=== PATIENT | female | born 1955 | race Caucasian/White ===

== ENCOUNTER → 2017-03-14 | Outpatient (CLI) | payer OTHER | LOC: CIMAGING 10:07 | PROVIDERS: ATTEND Physician Assistant | DX: K59.00 Constipation, unspecified (principal) | CPT/HCPCS: 74020-PO ==

== ENCOUNTER 2017-04-06 10:23 | Day surgery (SDC) | payer OTHER ==
[2017-04-06] MEDS ORDERED: LR 1,000 ML IV ONE (10:57)
--- NOTE | 2017-04-06 11:52 | PDGENHP ---
History & Physical Chief Complaint: phx polyps History of Present Illness: phx polyps, constipation Pertinent Past, Social, Family History: shx - tobacco 4 per day, had quit for 7 years then restarted, alcohol rare. FHX - no cc, breast cancer Relevant Physical Exam: A+Ox3, CTA, S1S2, RRR +BS, soft mild LLQ tenderness Cardiorespiratory Assessment: class 2 pt
--- NOTE | 2017-04-06 11:57 | PDANEPAE ---
ANE History of Present Illness Stool abnormality ANE Past Medical History - Cardiovascular History Hx Hypertension: No Hx Arrhythmias: No Hx Chest Pain: No Hx Coronary Artery / Peripheral Vascular Disease: No Hx CHF / Valvular Disease: No Hx Palpitations: No - Pulmonary History Hx COPD: No Hx Asthma/Reactive Airway Disease: No Hx Recent Upper Respiratory Infection: No Hx Oxygen in Use at Home: No Hx Sleep Apnea: No Sleep Apnea Screening Result - Last Documented: Negative Pulmonary History Comment: Smokes 5 cigs/day due to stress - Neurologic History Hx Cerebrovascular Accident: No Hx Seizures: No Hx Dementia: No Neurologic History Comment: occ migraines, stress H/A. Depression - Endocrine History Hx Diabetes: No - Renal History Hx Renal Disorders: No - Liver History Hx Hepatic Disorders: No - Neurological & Psychiatric Hx Hx Neurological and Psychiatric Disorders: Yes Neurological / Psychiatric History Comment: Back pain radiates down L side to ankle;. anxiety- mom, sister and friend in 2014. - Cancer History Hx Cancer: No - Congenital Disorder History Hx Congenital Disorders: No - GI History Hx Gastrointestinal Disorders: No Gastrointestinal History Comment: polyp, constipation, rectal bleeding with large stool, hemorrhoids. - Chronic Pain History Chronic Pain: Yes (back,L leg) - Surgical History Prior Surgeries: lumbar fusion. Appy. total L hip,. L knee ORIF ( later hardware removal). L ACL reconstruction;breast augmentation. bunionectomy. bilat cataract sx. hysterectomy. tonsillectomy ANE Review of Systems - Exercise capacity METS (RN): 4 METS ANE Patient History - Allergies Allergies/Adverse Reactions: amoxicillin [Amoxicillin] Allergy (Verified 04/04/17 14:10) Rash diazepam [From Valium] Allergy (Verified 04/04/17 14:10) Itching Iodinated Contrast- Oral and IV Dye Allergy (Verified 04/04/17 14:10) Other-Enter Comments Penicillins Allergy (Verified 04/04/17 14:10) Hives Tetracyclines Allergy (Verified 04/04/17 14:10) Other-Enter Comments - Home Medications Home Medications: CLONAZEPAM 12/10/13 [Last Taken Unknown] DULoxetine 04/04/17 [Last Taken Unknown] Dulcolax 04/04/17 [Last Taken Unknown] Hydromorphone 3 mg/30 ml-D5w 04/04/17 [Last Taken Unknown] SIMVASTATIN 04/04/17 [Last Taken Unknown] Vitamin D3 04/04/17 [Last Taken Unknown] traZODone 04/04/17 [Last Taken Unknown] - NPO status NPO Since - Liquids (Date): 04/05/17 NPO Since - Liquids (Time): 02:00 NPO Since - Solids (Date): 04/04/17 NPO Since - Solids (Time): 08:00 - Smoking Hx Smoking Status: Heavy smoker ANE Labs/Vital Signs - Vital Signs Blood Pressure: 118/86 Heart Rate: 88 Respiratory Rate: 18 O2 Sat (%): 98 Height: 167.64 cm Weight: 44.906 kg ANE Physical Exam - Airway Neck exam: FROM Mallampati Score: Class 1 Mouth exam: normal dental/mouth exam - Pulmonary Pulmonary: no respiratory distress - Cardiovascular Cardiovascular: regular rate and rhythym - ASA Status ASA Status: II ANE Anesthesia Plan Anesthesia Plan: MAC (with possible IV GA)
[2017-04-06] MEDS ORDERED: PROPOFOL 200 MG/20 ML VIAL ONE ×2 (12:02)
[2017-04-06] MEDS ORDERED: LIDOCAINE 2% 5 ML SDV ONE (12:02)
[2017-04-06] MEDS ORDERED: NALOXONE HCL 0.4 MG/ML INJ IVP PRN (12:07)
--- NOTE | 2017-04-06 12:54 | POSTOPPROG ---
Post Op Note Date of Operation: 04/06/17 Surgeon: Kenn Ambrose Anesthesiologist: Ciara Anesthesia: Other (Specify) (IV general) Pre-op Diagnosis: hx polyps Post-op Diagnosis: no polyps, hemorroids both internal and external Indication: phx polyps, small TA's removed in 2011 -- constipation, BRBPR Procedure: colonoscopy Findings: no polyps, vasvcular ectasia in cecum o/w normal Inf/Abcess present in the surg proc area at time of surgery?: No EBL: none Total fluids administered: 300 ml LR Complications: none immediate
[2017-04-06 13:16] VITALS: TEMP 97.9
[2017-04-06 13:21] VITALS: O2SAT 98
--- NOTE | 2017-04-06 13:42 | GPN ---
[f rep st] PROCEDURE NOTE DATE OF PROCEDURE: 04/06/2017 PROCEDURE: Colonoscopy. INDICATION: Personal history of non-advanced adenomas removed in 2011. PREOPERATIVE DIAGNOSIS: Rule-out polyps. Rule-out cancer. POSTOPERATIVE DIAGNOSES: 1. Vascular ectasia in the cecum, non-bleeding. 2. No polyps, colitis, diverticulosis, or masses. 3. Internal and external hemorrhoids. INFORMED CONSENT: I had a detailed discussion with the patient regarding the procedure, alternative s, benefits, and risks, including bleeding, perforation, infection, and reaction to medication. Inf ormed consent was signed and witnessed. COMPLICATIONS: None immediate. MEDICATIONS: IV general as per Dr. Moyer. DESCRIPTION OF PROCEDURE: After adequate sedation, patient remained in left lateral decubitus posit ion, and I performed a visual and digital anorectal examination. She did have external hemorrhoids noted. The video colonoscope was inserted via the rectum and advanced under visualization to the te rminal ilium. I identified the cecum by the ileocecal valve, appendiceal orifice, of confluence of tinea. The procedure was difficult secondary to a very torturous colon with significant looping. C ompletion of the procedure was aided by loop reduction and manual pressure. Upon withdrawal of the instrument, careful attention was paid to mucosal detail. The prep was very good. I did not note a ny polyps, masses, colitis, or diverticulosis. I did note a vascular ectasia in the cecum that was photographed, non-bleeding. Retroflex examination in the rectum did reveal some internal hemorrhoid s. The endoscope was un-retroflexed and advanced back up to the transverse colon, and air was remov ed. The endoscope was then completely removed, confirming the above findings. The patient tolerate d the procedure well and was transferred to the recovery room satisfactory condition. IMPRESSION: 1. Vascular ectasia in the cecum. 2. Otherwise normal colonoscopy. 3. No polyps, no masses. RECOMMENDATIONS: 1. Repeat colonoscopy in 5 years given personal history of polyps. If that is normal, consider inc reasing the interval. 2. High-fiber, high-fluid diet. 3. Trial of different laxative medications, such as Linzess or Amitiza. According to the note, kia mejia has tried Movantik and had increased abdominal discomfort related to that medication. 4. Follow up with ESTEFANY Dotson, as scheduled on [place] [address]. 5. Follow up with PCP as scheduled. Thank you for allowing me to participate in this patient's healthcare. Do not hesitate to call me i f there are comments or questions. /[id number]/MODL
[2017-04-06 14:22] VITALS: BP 126/65; PULSE 68; RESP 16
== END 2017-04-06 13:51 | disposition home or self-care (01) ==
LOC: FSGY 10:23
PROVIDERS: ATTEND Internal Medicine Gastroenterology
PROC: 0DJD8ZZ Inspection of Lower Intestinal Tract, Via Natural or Artificial Opening Endoscopic (ICD-10-PCS; principal; 2017-04-06 12:00)
DX: K64.8 Other hemorrhoids (principal); K64.4 Residual hemorrhoidal skin tags; K31.89 Other diseases of stomach and duodenum; Z86.010 Personal history of colon polyps; F17.210 Nicotine dependence, cigarettes, uncomplicated
CPT/HCPCS: J2704

== ENCOUNTER → 2017-04-14 | Outpatient (CLI) | payer OTHER | LOC: CLAB 08:43 → CIMAGING 08:45 → EDSTATUS 08:45 | PROVIDERS: ATTEND Physician Assistant | DX: K59.00 Constipation, unspecified (principal) | CPT/HCPCS: 74020-PO ==

== ENCOUNTER → 2017-12-08 | Outpatient (CLI) | payer OTHER ==
[~2017-12-08] MED LIST: IOPAMIDOL (ISOVUE-300) 100 ML BTL ONE; methylPREDNISolone SOD SUCC 125 MG/2 ML VIAL ONE
== END ==
LOC: FIMAGING 15:54 → FLAB 15:54 → EDSTATUS 15:57
PROVIDERS: ATTEND Internal Medicine Infectious Disease
DX: M86.8X8 Other osteomyelitis, other site (principal); S02.609A Fracture of mandible, unspecified, initial encounter for closed fracture
CPT/HCPCS: J1200; J2930; Q9967